=== PATIENT | female | born 1980 | race Caucasian/White ===

== ENCOUNTER 2017-03-19 16:42 | Emergency (ER) | payer OTHER ==
[2017-03-19] MEDS ORDERED: ONDANSETRON 4 MG/2 ML VIAL IVP ONE (17:37)
[2017-03-19] MEDS ORDERED: NS 1,000 ML IV ONE (17:37)
--- NOTE | 2017-03-19 17:40 | EDPHY ---
H & P Time Seen by Provider: 03/19/17 17:21 HPI/ROS: CHIEF COMPLAINT: Abdominal pain HISTORY OF PRESENT ILLNESS: Patient is a 37-year-old who presents with right lower quadrant abdominal pain starting at 2:45 a.m. today. She has had symptoms before but not for several months. She only has some ice tea today. Symptoms got worse and she took some Gas-X but it did nothing and she felt worse and she had a single episode of vomiting. When it was at its worse she felt like she could stand up and like she might pass out. Did not radiate. Was severe and now is mild. Not associated with vaginal discharge or bleeding or urinary symptoms or recent injury fall or trauma. REVIEW OF SYSTEMS: Eye: no change in vision ENT: no sore throat Cardiac: no chest pain or syncope Pulmonary: no cough or SOB Abdomen: HPI Musculoskeletal: no back pain Skin: no rash Neuro: no headache Constitutional: no fever : no urinary symptoms A comprehensive 10 point review of systems is otherwise negative aside from elements mentioned in the history of present illness. PAST MEDICAL HISTORY: Negative Social history: Daily alcohol, is studying for her H-art (WPP) exam General Appearance: Alert and conversant, cooperative. Eyes: No scleral icterus. ENT, Mouth: Normal mucous membranes. Respiratory: Normal respiratory effort, breath sounds equal, lungs are clear to auscultation. Cardiovascular: Regular rate and rhythm. Gastrointestinal: Right lower quadrant tenderness without rebound or guarding. Neurological: Alert and oriented x3. Normally conversant. Face symmetric, normal movement and sensation in all extremities. Skin: Warm and dry, no rashes. Musculoskeletal: No peripheral edema and no joint swelling. Psychiatric: Not agitated. Emergency Department course/MDM: Declined IV pain medication. Plan for labs and ultrasound. WBC 7.91, normal electrolytes and LFTs, negative lipase, not . Ultrasound: 6x5x4 cm midline mass, IUD in place, otherwise no evidence of appendicitis, can't see either ovary: , recommends CT. 1914: Results discussed, CT recommended and consented 2019: CT shows 10 cm dermoid tumor, results and findings discussed with the patient, plan to consult with OBGYN from [facility]. At this time she is comfortable and does not require pain medication. 2031: Bree walker. 2042: Jignesh for [facility] OBGYN; will see the patient in the office on Tuesday. Smoking Status: Never smoked Constitutional: Initial Vital Signs Temperature (C) 36.5 C 03/19/17 16:46 Heart Rate 64 03/19/17 16:46 Respiratory Rate 21 H 03/19/17 16:46 Blood Pressure 132/84 H 03/19/17 16:46 O2 Sat (%) 100 03/19/17 16:46 O2 Delivery Mode Room Air Allergies/Adverse Reactions: No Known Allergies Allergy (Verified 03/19/17 16:44) Home Medications: Medication Instructions Recorded NK [No Known Home Meds] 03/19/17 Medical Decision Making - Diagnostics Imaging Results: Imaging Impressions Abdomen Ultrasound 03/19/17 17:38 Impression: Negative limited right lower quadrant ultrasound, specifically, there are no secondary findings to support a clinical diagnosis of acute appendicitis. Ultrasound Pelvis Complete (Transabdominal and Endovaginal) History: Pelvic pain in a 37-year-old female. Comparison: No previous studies are available for comparison. Technique: Transabdominal and endovaginal ultrasound images were obtained. Endovaginal images obtained for better evaluation of the uterine myometrium and adnexa. Findings: The uterus is normal in size and measures 7.7 x 3.1 x 3.9 cm. Nabothian cysts are seen in the lower uterine segment. An IUD is in place. The endometrium measures 0.2 cm in thickness. No uterine fibroid formation is seen. The ovaries are not visualized either transabdominally or transvaginally. There is a heterogeneous mass seen in the pelvis in the midline, measuring greater than 6 cm in maximum dimension. A small amount of free fluid is seen in the dependent portion of the pelvis. Impression: Pelvic mass which is suboptimally characterized on this ultrasound study. It could reflect a dermoid or other tumor. Possibly this could reflect a large amount of fecal material. No peristalsis was seen within the mass. Results called and discussed with Magalys Piper M.D. on March 19, 2017 at 1911 hours. Pelvic/Renal Ultrasound 03/19/17 17:38 Impression: Negative limited right lower quadrant ultrasound, specifically, there are no secondary findings to support a clinical diagnosis of acute appendicitis. Ultrasound Pelvis Complete (Transabdominal and Endovaginal) History: Pelvic pain in a 37-year-old female. Comparison: No previous studies are available for comparison. Technique: Transabdominal and endovaginal ultrasound images were obtained. Endovaginal images obtained for better evaluation of the uterine myometrium and adnexa. Findings: The uterus is normal in size and measures 7.7 x 3.1 x 3.9 cm. Nabothian cysts are seen in the lower uterine segment. An IUD is in place. The endometrium measures 0.2 cm in thickness. No uterine fibroid formation is seen. The ovaries are not visualized either transabdominally or transvaginally. There is a heterogeneous mass seen in the pelvis in the midline, measuring greater than 6 cm in maximum dimension. A small amount of free fluid is seen in the dependent portion of the pelvis. Impression: Pelvic mass which is suboptimally characterized on this ultrasound study. It could reflect a dermoid or other tumor. Possibly this could reflect a large amount of fecal material. No peristalsis was seen within the mass. Results called and discussed with Magalys Piper M.D. on March 19, [address] 03/19/17 19:17 Impression: 1. Complex cystic mass containing large amounts of fat is presumably a dermoid. It displaces adjacent structures without infiltration. 2. See above report for additional findings. Results called and discussed with MAGALYS PIPER M.D. on 03/19/2017 at 20:20 Differential Diagnosis: Differential considered including but not limited to appendicitis, ovarian torsion, ovarian cyst, PID, UTI, pelvic mass. - Data Points Laboratory Results: Laboratory Results 03/19/17 17:30 03/19/17 17:30 03/19/17 03/19/17 03/19/17 20:30 17:30 17:30 WBC RBC Hgb Hct MCV MCH MCHC RDW Plt Count MPV Neut % (Auto) Lymph % (Auto) [place] % (Auto) Eos % (Auto) Baso % (Auto) Nucleat RBC Rel Count Absolute Neuts (auto) Absolute Lymphs (auto) Absolute Monos (auto) Absolute Eos (auto) Absolute Basos (auto) Absolute Nucleated RBC Immature Gran % Immature Gran # Sodium 137 mEq/L mEq/L (134-144) Potassium 3.9 mEq/L mEq/L (3.5-5.2) Chloride 104 mEq/L mEq/L (97-110) Carbon Dioxide 19 mEq/l L mEq/l (22-31) Anion Gap 14 mEq/L mEq/L (8-16) BUN 12 mg/dL mg/dL (7-23) Creatinine 0.8 mg/dL mg/dL (0.6-1.0) Estimated GFR > 60 Glucose 88 mg/dL mg/dL (70-100) Calcium 9.7 mg/dL mg/dL (8.5-10.4) Total Bilirubin 0.7 mg/dL mg/dL (0.1-1.4) Conjugated Bilirubin 0.3 mg/dL mg/dL (0.0-0.5) Unconjugated Bilirubin 0.4 mg/dL mg/dL (0.0-1.1) AST 42 IU/L IU/L (14-46) ALT 46 IU/L IU/L (9-52) Alkaline Phosphatase 83 IU/L IU/L (38-126) Total Protein 8.3 g/dL H g/dL (6.3-8.2) Albumin 5.0 g/dL g/dL (3.5-5.0) Lipase 175.0 IU/L IU/L (23-300) Beta HCG, Qual NEGATIVE Urine Color PALE YELLOW Urine Appearance CLEAR Urine pH 5.0 (5.0-7.5) Ur Specific [place] 1.027 (1.002-1.030) Urine Protein NEGATIVE (NEGATIVE) Urine Ketones 1+ H (NEGATIVE) Urine Blood NEGATIVE (NEGATIVE) Urine Nitrate NEGATIVE (NEGATIVE) Urine Bilirubin NEGATIVE (NEGATIVE) Urine Urobilinogen NEGATIVE EU EU (0.2-1.0) Ur Leukocyte Esterase NEGATIVE (NEGATIVE) Urine Glucose NEGATIVE (NEGATIVE) 03/19/17 17:30 WBC 7.91 10^3/uL 10^3/uL (3.80-9.50) RBC 4.31 10^6/uL 10^6/uL (4.18-5.33) Hgb 13.4 g/dL g/dL (12.6-16.3) Hct 38.8 % % (38.0-47.0) MCV 90.0 fL fL (81.5-99.8) MCH 31.1 pg pg (27.9-34.1) MCHC 34.5 g/dL g/dL (32.4-36.7) RDW 13.0 % % (11.5-15.2) Plt Count 191 10^3/uL 10^3/uL (150-400) MPV 10.8 fL fL (8.7-11.7) Neut % (Auto) 84.4 % H % (39.3-74.2) Lymph % (Auto) 11.1 % L % (15.0-45.0) [place] % (Auto) 3.9 % L % (4.5-13.0) Eos % (Auto) 0.1 % L % (0.6-7.6) Baso % (Auto) 0.1 % L % (0.3-1.7) Nucleat RBC Rel Count 0.0 % % (0.0-0.2) Absolute Neuts (auto) 6.67 10^3/uL H 10^3/uL (1.70-6.50) Absolute Lymphs (auto) 0.88 10^3/uL L 10^3/uL (1.00-3.00) Absolute Monos (auto) 0.31 10^3/uL 10^3/uL (0.30-0.80) Absolute Eos (auto) 0.01 10^3/uL L 10^3/uL (0.03-0.40) Absolute Basos (auto) 0.01 10^3/uL L 10^3/uL (0.02-0.10) Absolute Nucleated RBC 0.00 10^3/uL 10^3/uL (0-0.01) Immature Gran % 0.4 % % (0.0-1.1) Immature Gran # 0.03 10^3/uL 10^3/uL (0.00-0.10) Sodium Potassium Chloride Carbon Dioxide Anion Gap BUN Creatinine Estimated GFR Glucose Calcium Total Bilirubin Conjugated Bilirubin Unconjugated Bilirubin AST ALT Alkaline Phosphatase Total Protein Albumin Lipase Beta HCG, Qual Urine Color Urine Appearance Urine pH Ur Specific [place] Urine Protein Urine Ketones Urine Blood Urine Nitrate Urine Bilirubin Urine Urobilinogen Ur Leukocyte Esterase Urine Glucose Medications Given: Discontinued Medications Sodium Chloride (Ns) 1,000 mls @ 0 mls/hr IV ONCE ONE; Wide Open PRN Reason: Protocol Stop: 03/19/17 17:38 Last Admin: 03/19/17 17:51 Dose: 1,000 mls Ondansetron HCl (Zofran) 4 mg IVP EDNOW ONE Stop: 03/19/17 17:38 Last Admin: 03/19/17 17:51 Dose: 4 mg Departure - Departure Disposition: Home, Routine, Self-Care Clinical Impression: Dermoid tumor Condition: Good Instructions: Computed Tomography Scan (ED) Referrals: Cynthia Walker MD [Primary Care Provider] - As per Instructions Andreia Egan MD [Medical Doctor] - 03/21/17 (Follow-up with [facility] OBGYN on Tuesday.) Stand Alone Forms: Work Excuse
[2017-03-19 17:43] LABS: % IMMATURE GRANULYOCYTES 0.4 % (0.0-1.1); ABSOLUTE IMMATURE GRANULOCYTES 0.03 10^3/uL (0.00-0.10); ADD DIFF? NO; ADD MORPH? NO; ADD SCAN? NO; ATYPICAL LYMPHOCYTE FLAG 20 (0-99); FRAGMENT RBC FLAG 0 (0-99); HEMATOCRIT 38.8 % (38.0-47.0); HEMOGLOBIN 13.4 g/dL (12.6-16.3); LEFT SHIFT FLG 0 (0-99); LIPEMIA HEMOLYSIS FLAG 90 (0-99); MEAN CELL HEMOGLOBIN 31.1 pg (27.9-34.1); MEAN CELL HEMOGLOBIN CONCENTR. 34.5 g/dL (32.4-36.7); MEAN PLATELET VOLUME 10.8 fL (8.7-11.7); PLATELET CLUMPS FLAG 0 (0-99); PLATELET COUNT 191 10^3/uL (150-400); RED BLOOD CELL COUNT 4.31 10^6/uL (4.18-5.33)
[2017-03-19 17:57] LABS: ALANINE AMINOTRANSFERASE 46 IU/L (9-52); ALKALINE PHOSPHATASE 83 IU/L (38-126); ANION GAP 14 mEq/L (8-16); ASPARTATE AMINOTRANSFERASE 42 IU/L (14-46); BILIRUBIN,TOTAL 0.7 mg/dL (0.1-1.4); BILIRUBIN-CONJUGATED 0.3 mg/dL (0.0-0.5); BILIRUBIN-UNCONJUGATED 0.4 mg/dL (0.0-1.1); CALCIUM 9.7 mg/dL (8.5-10.4); CARBON DIOXIDE 19 mEq/l (22-31); CHLORIDE 104 mEq/L (97-110); CREATININE 0.8 mg/dL (0.6-1.0); GLOMERULAR FILTRATION RATE > 60; GLUCOSE 88 mg/dL (70-100); POTASSIUM 3.9 mEq/L (3.5-5.2); SODIUM 137 mEq/L (134-144); TOTAL PROTEIN 8.3 g/dL (6.3-8.2)
[2017-03-19] MEDS ORDERED: IOPAMIDOL (ISOVUE-300) 100 ML BTL ONE (19:22)
[2017-03-19 20:25] VITALS: RESP 18; O2SAT 97
[2017-03-19 20:44] LABS: COLOR PALE YELLOW; LEUKOCYTE ESTERASE,URINE NEGATIVE (NEGATIVE); NITRITE,URINE NEGATIVE (NEGATIVE)
[2017-03-19 21:09] VITALS: BP 107/75; PULSE 64; TEMP 98.4
== END 2017-03-19 21:09 | disposition home or self-care (01) ==
DX: D36.7 Benign neoplasm of other specified sites (principal)
CPT/HCPCS: 96374; J2405; Q9967

== ENCOUNTER 2017-04-08 06:08 | Inpatient (IN) | payer OTHER ==
--- NOTE | 2017-04-06 18:46 | GHP ---
[f rep st] PREOP HISTORY AND PHYSICAL DATE OF ADMISSION: 04/08/2017 CHIEF COMPLAINT: Lower abdominal pain and ovarian cyst. HISTORY OF PRESENT ILLNESS: The patient is a 37-year-old, 1, para 0, abortus 1 female with last menstrual period of March 10, 2017, using the Mirena IUD for control, who presents for preo perative exam for surgery to remove a large ovarian cyst, which has been undiagnosed and found to be 10 cm, with appearance suggestive of a dermoid cyst. Patient reports discomfort and generalized cr amping since March 19 when she went to the emergency room. She reports having intermittent pain fo r years now and always thought it was gas pain. In the last few months, the pain has been getting w orse. She has had occasional episodes of severe pain. She was found on imaging via abdominal CT an d pelvic ultrasound to have a complex 10 cm ovarian cyst that is located in the mid pelvis, measurin g 10 x 10 cm, which contains large amounts of fat consistent with a presumed fibroid. A pelvic ultr asound on March 19 as well showed that her uterus appeared otherwise normal with an IUD in place. The patient highly desired to proceed with surgical management and agrees to plan for surgery this w minto. She has had a preoperative CA-125 which was normal at 19. REVIEW OF SYSTEMS: Negative, other than as mentioned in the HPI. PAST MEDICAL HISTORY: Migraine headaches, history of syncope, allergic rhinitis. PAST SURGICAL HISTORY: None. FAMILY HISTORY: Noncontributory. SOCIAL HISTORY: Denies tobacco, alcohol, and drug use. Patient is . ALLERGIES: Augmentin. PHYSICAL EXAMINATION: VITAL SIGNS: Height 66 inches, weight 144 pounds, blood pressure 118/80, pul se 70. CONSTITUTIONAL: No acute distress. Well-nourished. Well-developed. RESPIRATORY: Clear t o auscultation bilaterally. CARDIOVASCULAR: Regular rate and rhythm. ABDOMEN: Soft and nontender . PELVIC: Normal exam with IUD string seen clearly and mass palpated on exam, which was tender to pal pation. EXTREMITIES: Normal with no cyanosis, edema, or clubbing. ASSESSMENT: Patient is a 37-year-old female with a 10 cm complex ovarian mass. Imaging suggests th is is consistent with a dermoid cyst. PLAN: Proceed to operating room on April 08, 2017, for mini laparotomy, ovarian cystectomy, and any other necessary procedures. All risks, benefits, indications, and alternatives were reviewed at [facility], to include risks of infection, bleeding, blood transfusion, damage to surrounding structures an d organs, risks of anesthesia, and all other necessary procedures. Benefit is further diagnosis and exclusion of cancer. Plan for preoperative antibiotics with clindamycin 900 mg on-call to the operating room, given her a llergy to Augmentin. Preoperative labs: CBC, type and screen, and urinalysis. All questions were answered and consent signed. /[id number]/MODL
[2017-04-08] MEDS ORDERED: CLINDAMYCIN 900 MG/DEXTROSE 50 ML IV ONE (06:28)
[2017-04-08] MEDS ORDERED: LIDOCAINE 1% 2 ML INJ ID PRN (06:29)
[2017-04-08] MEDS ORDERED: LR 1,000 ML IV ONE (06:29)
[2017-04-08] MEDS ORDERED: MIDAZOLAM 2 MG/2 ML VIAL IVP ONE (07:22)
[2017-04-08] MEDS ORDERED: SCOPOLAMINE HYDROBROMIDE 1.5 MG PATCH TD ONE (07:22)
--- NOTE | 2017-04-08 07:23 | PDHPUP ---
History & Physical Update H&P update statement: This history and physical update is based on an assessment of the patient which was completed after admission or registration (within 24 hours), but prior to the surgery/procedure. H&P update: no change in patient's condition since H&P completed
[2017-04-08] MEDS ORDERED: fentaNYL 100 MCG/2 ML INJ ONE ×4 (07:25→10:35)
[2017-04-08] MEDS ORDERED: PROPOFOL/EMULSION 500 MG/50 ML BOTTLE IV ONE (07:25)
[2017-04-08] MEDS ORDERED: PROPOFOL 200 MG/20 ML VIAL ONE (07:25)
[2017-04-08] MEDS ORDERED: LIDOCAINE 2% 5 ML SDV ONE (07:26)
[2017-04-08] MEDS ORDERED: MIDAZOLAM 2 MG/2 ML VIAL ONE (07:28)
--- NOTE | 2017-04-08 07:32 | PDANEPAE ---
ANE History of Present Illness Patient presents for surgery ANE Past Medical History - Cardiovascular History Hx Hypertension: No Hx Arrhythmias: No Hx Chest Pain: No Hx Coronary Artery / Peripheral Vascular Disease: No Hx CHF / Valvular Disease: No Hx Palpitations: No Cardiovascular History Comment: had holter monitor test for fainting spell that came back normal - Pulmonary History Hx COPD: No Hx Asthma/Reactive Airway Disease: No Hx Recent Upper Respiratory Infection: No Hx Oxygen in Use at Home: No Hx Sleep Apnea: No Sleep Apnea Screening Result - Last Documented: Negative - Neurologic History Hx Cerebrovascular Accident: No Hx Seizures: No Hx Dementia: No - Endocrine History Hx Diabetes: No - Renal History Hx Renal Disorders: No - Liver History Hx Hepatic Disorders: No - Neurological & Psychiatric Hx Hx Neurological and Psychiatric Disorders: Yes Neurological / Psychiatric History Comment: anxiety/ stress - Cancer History Hx Cancer: No - Congenital Disorder History Hx Congenital Disorders: No - GI History Hx Gastrointestinal Disorders: No - Other Health History Other Health History: wears glasses/ contacts- instructed pt to wear glasses dos - Chronic Pain History Chronic Pain: No - Surgical History Prior Surgeries: wisdom teeth removed. in teens ANE Review of Systems - Exercise capacity Exercise capacity: >=4 METS METS (RN): 4 METS ANE Patient History - Allergies Allergies/Adverse Reactions: No Known Allergies Allergy (Verified 04/06/17 16:00) - Home Medications Home Medications: Hydrocodone/Acetaminophen [[place] 5/325 (*)] 1 each PO Q6HRS PRN 03/31/17 [Last Taken Unknown] Vitamin B Complex [B Complex] 1 each PO DAILY 03/31/17 [Last Taken Unknown] - NPO status NPO Since - Liquids (Date): 04/08/17 NPO Since - Liquids (Time): 04:30 NPO Since - Solids (Date): 04/07/17 NPO Since - Solids (Time): 19:00 - Anes Hx Anes Hx: no prior problems - Smoking Hx Smoking Status: Never smoked - Family Anes Hx Family Hx Anesthesia Complications: none ANE Labs/Vital Signs - Vital Signs Blood Pressure: 103/73 Heart Rate: 62 Respiratory Rate: 16 O2 Sat (%): 100 Height: 167.64 cm Weight: 64.41 kg ANE Physical Exam - Airway Neck exam: FROM Mallampati Score: Class 1 Mouth exam: normal dental/mouth exam - Pulmonary Pulmonary: no respiratory distress - Cardiovascular Cardiovascular: regular rate and rhythym - ASA Status ASA Status: I ANE Anesthesia Plan Anesthesia Plan: general endotracheal anesthesia (RBA discussed)
[2017-04-08] MEDS ORDERED: ONDANSETRON 4 MG/2 ML VIAL ONE ×2 (08:01→10:34)
[2017-04-08] MEDS ORDERED: DEXAMETHASONE 4 MG/ML VIAL ONE (08:01)
[2017-04-08] MEDS ORDERED: NALOXONE HCL 0.4 MG/ML INJ IVP PRN (08:16)
[2017-04-08] MEDS ORDERED: KETOROLAC 30 MG/1 ML SDV ONE (08:18)
[2017-04-08] MEDS ORDERED: ROCURONIUM 50 MG/5 ML VIAL ONE (08:42)
[2017-04-08] MEDS ORDERED: SUGAMMADEX SODIUM 200 MG/2 ML VIAL IVP ONE (08:54)
[2017-04-08] MEDS ORDERED: ONDANSETRON 4 MG/2 ML VIAL IVP PRN (09:20)
[2017-04-08] MEDS ORDERED: ACETAMINOPHEN 325 MG TAB PO PRN (09:20)
[2017-04-08] MEDS: fentaNYL 100 MCG/2 ML INJ IVP PRN ×6 (09:25→10:36)
--- NOTE | 2017-04-08 09:27 | POSTANESTH ---
Post Anesthetic Evaluation Cardiovascular Status: Normal, Stable Respiratory Status: Normal, Stable Level of Consciousness/Mental Status: Can Participate in Eval Pain Control: Adequate, Prn Tx Ordered Nausea/Vomiting Control: Adequate, Prn Tx Ordered
[2017-04-08] MEDS ORDERED: LR 1,000 ML IV SCH (09:30)
[2017-04-08] MEDS: HYDROCODONE/APAP 5/325 TAB PO PRN ×2 (11:54→16:09)
--- NOTE | 2017-04-08 13:27 | POSTOPPROG ---
Post Op Note Date of Operation: 04/08/17 Surgeon: Andreia Egan Product Test Specialist: Ying Bryant MD Anesthesia: GET(General Endotracheal) Pre-op Diagnosis: Complex ovarian cyst Post-op Diagnosis: Bilateral complex ovarian cysts, suspect dermoids Indication: Large 10cm complex ovarian cyst Procedure: Laparotomy, ovarian cystectomy Findings: Bilateral ovarian cysts Inf/Abcess present in the surg proc area at time of surgery?: No Depth: Organ Space EBL: Minimal Total fluids administered: 700 cc Complications: none Drains: Other (shook) Specimen(s): Right and left ovarian cysts, peritoneal washings
[2017-04-08] MEDS: KETOROLAC 30 MG/1 ML SDV IVP PRN ×2 (14:40→20:50)
[2017-04-08] MEDS: OXYCODONE/APAP 5/325 TAB PO PRN (20:11)
[2017-04-09] MEDS: OXYCODONE/APAP 5/325 TAB PO PRN ×6 (00:19→22:10)
[2017-04-09] MEDS: KETOROLAC 30 MG/1 ML SDV IVP PRN (03:14)
[2017-04-09 06:28] LABS: % IMMATURE GRANULYOCYTES 0.3 % (0.0-1.1); ABSOLUTE IMMATURE GRANULOCYTES 0.02 10^3/uL (0.00-0.10); ADD DIFF? NO; ADD MORPH? NO; ADD SCAN? NO; ATYPICAL LYMPHOCYTE FLAG 10 (0-99); FRAGMENT RBC FLAG 0 (0-99); HEMATOCRIT 32.8 % (38.0-47.0); HEMOGLOBIN 11.3 g/dL (12.6-16.3); LEFT SHIFT FLG 0 (0-99); LIPEMIA HEMOLYSIS FLAG 90 (0-99); MEAN CELL HEMOGLOBIN 31.5 pg (27.9-34.1); MEAN CELL HEMOGLOBIN CONCENTR. 34.5 g/dL (32.4-36.7); MEAN CELL VOLUME 91.4 fL (81.5-99.8); MEAN PLATELET VOLUME 11.2 fL (8.7-11.7); PLATELET CLUMPS FLAG 0 (0-99); PLATELET COUNT 158 10^3/uL (150-400); RED BLOOD CELL COUNT 3.59 10^6/uL (4.18-5.33); RED CELL DISTRIBUTION WIDTH 13.2 % (11.5-15.2)
[2017-04-09] MEDS ORDERED: POLYETHYLENE GLYCOL 3350 17 GM PKT PO PRN (08:34)
[2017-04-09] MEDS ORDERED: BISACODYL 10 MG SUPP PR PRN (08:34)
[2017-04-09] MEDS ORDERED: LACTULOSE 20 GM/30 ML UDCUP PO PRN (08:34)
[2017-04-09] MEDS ORDERED: MAGNESIUM HYDROXIDE 30 ML UDCUP PO PRN (08:34)
--- NOTE | 2017-04-09 09:43 | SOAPPROG ---
SOAP Progress Note Assessment/Plan: Assessment: POD#1 s/p mini-lap, bilateral ovarian cystectomy for dermoid cysts Hct appropriate VSS Recovering well Plan: Routine postop care Transition to oral pain meds today Void trial Ambulation Expect home POD#2 04/09/17 09:42 Subjective: Poor sleep due to pain, however is mostly controlled with toradol and percocet ( 2 tab q4h). Is passing flatus, small amount but had gas pain. Has ambulated x 2 , hasn't voided yet after removal of shook. Tolerating yogurt and crackers. Objective: Vital Signs Temp Pulse Resp BP Pulse Ox 36.3 C 48 L 16 92/60 L 97 04/09/17 03:30 04/09/17 03:30 04/09/17 03:30 04/09/17 03:30 04/09/17 03:30 Laboratory Results 04/09/17 06:20 04/08/17 04/09/17 04/10/17 05:59 05:59 05:59 Intake Total 2900 Output Total 2225 Balance 675 Gen: NAD, alert, awake Resp: unlabored CV: RRR Abd: soft, moderately distended, appropriate tenderness Incision: bandage with minimal serosanguineous staining Ext: no edema ICD10 Worksheet Patient Problems: Problems Problem Status Onset S/P ovarian cystectomy Acute - ICD10 Problem Qualifiers (1) S/P ovarian cystectomy
[2017-04-09] MEDS: SENNOSIDES/DOCUSATE SODIUM TAB PO SCH ×2 (10:21→22:11)
[2017-04-09] MEDS: IBUPROFEN 600 MG TAB PO PRN ×2 (12:21→19:12)
[2017-04-10] MEDS: IBUPROFEN 600 MG TAB PO PRN ×2 (01:10→08:27)
[2017-04-10 01:14] VITALS: RESP 16
[2017-04-10] MEDS: OXYCODONE/APAP 5/325 TAB PO PRN ×3 (02:59→12:42)
[2017-04-10] MEDS: SENNOSIDES/DOCUSATE SODIUM TAB PO SCH (08:28)
[2017-04-10 08:40] VITALS: BP 99/62; PULSE 55; TEMP 98.5; O2SAT 97
--- NOTE | 2017-04-10 10:28 | GDS ---
[f rep st] DISCHARGE SUMMARY ADMISSION DIAGNOSIS: Ovarian cyst. POSTOPERATIVE DIAGNOSIS: Ovarian cyst, status post bilateral cystectomy. PROCEDURES: 1. Mini laparotomy. 2. Bilateral ovarian cystectomy for bilateral dermoid cysts. COMPLICATIONS: None. CONSULTS: None. HISTORY OF PRESENT ILLNESS: The patient is a healthy 37-year-old 0 who presented to the hospital with abdominal pain, and on imaging was found to have a complex ovarian cyst. She was seen as an outpatient and, given the complexity of the cyst and her symptoms, it was recommended to proceed with surgical intervention. HOSPITAL COURSE: She was brought to the hospital for a planned mini laparotomy and ovarian cystectomy. Initially on the imaging, it appeared only 1 ovary was involved, but at the time of surgery both ovaries were noted to have 2 dermoid cysts each, which were completely resected without complication. The patient did very well postoperatively and had a routine postoperative course. Her postoperative hematocrit was appropriate at 32.8. By postoperative day #2, she was meeting all milestones, including pain controlled with oral medications, tolerating a regular diet, ambulating and voiding normally, and passing flatus. She was discharged home on postoperative day 2 in stable condition. HOME MEDICATIONS: Continue current home B vitamins. Prescriptions given for Percocet 5/325 mg 1-2 tabs every 4 hours as needed, and ibuprofen 600 mg 1 tab every 6 hours as needed. DISCHARGE INSTRUCTIONS: Follow up with Dr. Egan in 2 weeks as scheduled. No heavy lifting for 6 weeks. No intercourse for 2 weeks. No driving for 2 weeks. Call for any concerns, including pain, fevers, chills, nausea, vomiting , signs of wound infection. /[id number]/MODL MTDD
== END 2017-04-10 13:44 | disposition home or self-care (01) | DRG 743 ==
LOC: F3E 06:08 → FOB 11:22
PROVIDERS: ADMIT Obstetrics & Gynecology; ATTEND Obstetrics & Gynecology
PROC: 3E1M38Z Irrigation of Peritoneal Cavity using Irrigating Substance, Percutaneous Approach (ICD-10-PCS; principal; 2017-04-08 07:30)
PROC: 0UB20ZZ Excision of Bilateral Ovaries, Open Approach (ICD-10-PCS; principal; 2017-04-08 07:30)
DX: D27.0 Benign neoplasm of right ovary (principal); D27.1 Benign neoplasm of left ovary
CPT/HCPCS: J1100; J1885; J2250; J2405; J2704; J3010

== ENCOUNTER → 2017-08-09 | Outpatient (CLI) | payer OTHER | LOC: FIMAGING 15:51 | PROVIDERS: ATTEND Obstetrics & Gynecology | DX: N83.202 Unspecified ovarian cyst, left side (principal); Z86.018 Personal history of other benign neoplasm; Z97.5 Presence of (intrauterine) contraceptive device ==

== ENCOUNTER → 2017-09-07 | Outpatient (CLI) | payer OTHER | LOC: FIMAGING 13:39 | PROVIDERS: ATTEND Obstetrics & Gynecology | DX: N83.202 Unspecified ovarian cyst, left side (principal); Z97.5 Presence of (intrauterine) contraceptive device ==

== ENCOUNTER 2018-06-07 12:02 | Emergency (ER) | payer OTHER ==
[2018-06-07 12:49] LABS: PLATELET COUNT 198 10^3/uL (150-400)
--- NOTE | 2018-06-07 12:56 | EDPHY ---
H & P Stated Complaint: L anterior CP episodes x 2 days-worse with deep breathing Time Seen by Provider: 06/07/18 12:55 HPI/ROS: CHIEF COMPLAINT: Intermittent pleuritic pain HISTORY OF PRESENT ILLNESS: The patient presents to the ED with a 2 day history of intermittent sharp left lateral to sternum pleuritic chest pain. She denies any asymmetric calf pain or swelling. She denies prior history of PE or DVT. The patient does have an IUD. She denies any history of exertional chest pain, cough, trauma, fever or unexplained weight loss. The patient does have a history of chronic pelvic pain which has been relatively quiescent over the past several months. She has no complaints of acute abdominal pain today. REVIEW OF SYSTEMS: A comprehensive 10 point review of systems is otherwise negative aside from elements mentioned in the history of present illness. Source: Patient Exam Limitations: No limitations - Personal History LMP (Females 10-55): IUD In Place - Medical/Surgical History Hx Asthma: No Hx Chronic Respiratory Disease: No Hx Diabetes: No Hx Cardiac Disease: No Hx Renal Disease: No Hx Cirrhosis: No Hx Alcoholism: No Hx HIV/AIDS: No Hx Splenectomy or Spleen Trauma: No Other PMH: DENIES - Social History Smoking Status: Never smoked - Physical Exam Exam: General Appearance: Alert, no distress Eyes: Pupils equal and round no pallor or injection ENT, Mouth: Mucous membranes moist Respiratory: There are no retractions, lungs are clear to auscultation Cardiovascular: Regular rate and rhythm Gastrointestinal: Abdomen is soft and nontender, no masses, bowel sounds normal Neurological: 5/5 strength all 4 extremities Skin: Warm and dry, no rashes Musculoskeletal: Neck is supple nontender Extremities: symmetrical, full range of motion Constitutional: Initial Vital Signs Temperature (C) 36.1 C 06/07/18 12:05 Heart Rate 81 06/07/18 12:05 Respiratory Rate 18 06/07/18 12:05 Blood Pressure 127/87 H 06/07/18 12:05 O2 Sat (%) 100 06/07/18 12:05 O2 Delivery Mode Room Air Allergies/Adverse Reactions: No Known Allergies Allergy (Verified 04/06/17 16:00) Home Medications: Medication Instructions Recorded NK [No Known Home Meds] 06/07/18 Medical Decision Making - Diagnostics EKG Interpretation: EKG: Complete interpretation has been separately recorded in the [facility]: [facility] archive. Summary impression: Sinus rhythm, rate 61 Imaging Results: Imaging Impressions Chest X-Ray 06/07/18 12:40 Impression: No acute findings in the chest. ED Course/Re-evaluation: The patient presents to the ED with 2 days of intermittent sharp left-sided pleuritic chest pain. The patient is noted to be hemodynamically stable with no hypoxemia. She has no clinical evidence of a DV T. The patient's EKG demonstrates no evidence of an arrhythmia. And the patient's D-dimer is negative which I feel adequately excludes pulmonary embolism in this low risk by Wells criteria patient. Additionally the patient's troponin demonstrates no abnormalities. Her chest x- ray demonstrates no evidence of a pneumothorax or abnormal mediastinum. This point time the etiology of her symptoms seem to be consistent with mild pleurisy or possibly esophageal spasm. The patient has been reassured that we see no evidence of pericarditis, myocarditis, myocardial infarction, pneumothorax or pulmonary embolism. I do feel the patient can use Tylenol as needed for management of her symptoms. She has been instructed to return to the ED for markedly worsening symptoms or other concerns. I re-evaluated the patient at 1:30 p.m. and she is in no acute distress. I reviewed the results of her laboratory testing and return precautions. Differential Diagnosis: Differential diagnosis considered includes esophageal spasm, pleurisy, pericarditis, pulmonary embolism, pneumothorax, myocarditis, myocardial infarction, pericarditis - Data Points Laboratory Results: Laboratory Results 06/07/18 12:40 06/07/18 12:40 06/07/18 06/07/18 06/07/18 12:43 12:40 12:40 WBC 4.19 10^3/uL 10^3/uL (3.80-9.50) RBC 4.55 10^6/uL 10^6/uL (4.18-5.33) Hgb 14.1 g/dL g/dL (12.6-16.3) Hct 41.2 % % (38.0-47.0) MCV 90.5 fL fL (81.5-99.8) MCH 31.0 pg pg (27.9-34.1) MCHC 34.2 g/dL g/dL (32.4-36.7) RDW 12.4 % % (11.5-15.2) Plt Count 198 10^3/uL 10^3/uL (150-400) MPV 10.3 fL fL (8.7-11.7) Neut % (Auto) 61.5 % % (39.3-74.2) Lymph % (Auto) 26.3 % % (15.0-45.0) [place] % (Auto) 11.0 % % (4.5-13.0) Eos % (Auto) 0.5 % L % (0.6-7.6) Baso % (Auto) 0.5 % % (0.3-1.7) Nucleat RBC Rel Count 0.0 % % (0.0-0.2) Absolute Neuts (auto) 2.58 10^3/uL 10^3/uL (1.70-6.50) Absolute Lymphs (auto) 1.10 10^3/uL 10^3/uL (1.00-3.00) Absolute Monos (auto) 0.46 10^3/uL 10^3/uL (0.30-0.80) Absolute Eos (auto) 0.02 10^3/uL L 10^3/uL (0.03-0.40) Absolute Basos (auto) 0.02 10^3/uL 10^3/uL (0.02-0.10) Absolute Nucleated RBC 0.00 10^3/uL 10^3/uL (0-0.01) Immature Gran % 0.2 % % (0.0-1.1) Immature Gran # 0.01 10^3/uL 10^3/uL (0.00-0.10) D-Dimer Sodium 140 mEq/L mEq/L (135-145) Potassium 4.2 mEq/L mEq/L (3.3-5.0) Chloride 107 mEq/L mEq/L (97-110) Carbon Dioxide 24 mEq/l mEq/l (22-31) Anion Gap 9 mEq/L mEq/L (8-16) BUN 15 mg/dL mg/dL (7-23) Creatinine 0.7 mg/dL mg/dL (0.6-1.0) Estimated GFR > 60 Glucose 101 mg/dL H mg/dL (70-100) Calcium 9.3 mg/dL mg/dL (8.5-10.4) POC Troponin I 0.00 ng/mL ng/mL (0.00-0.08) 06/07/18 12:10 WBC RBC Hgb Hct MCV MCH MCHC RDW Plt Count MPV Neut % (Auto) Lymph % (Auto) [place] % (Auto) Eos % (Auto) Baso % (Auto) Nucleat RBC Rel Count Absolute Neuts (auto) Absolute Lymphs (auto) Absolute Monos (auto) Absolute Eos (auto) Absolute Basos (auto) Absolute Nucleated RBC Immature Gran % Immature Gran # D-Dimer 0.40 ug/mLFEU ug/mLFEU (0.00-0.50) Sodium Potassium Chloride Carbon Dioxide Anion Gap BUN Creatinine Estimated GFR Glucose Calcium POC Troponin I Point of Care Test Results: Chemistry 06/07/18 12:43 POC Troponin I 0.00 ng/mL ng/mL (0.00-0.08) Departure - Departure Disposition: Home, Routine, Self-Care Clinical Impression: Chest pain Condition: Good Instructions: Chest Pain (ED) Additional Instructions: 1. The workup in the emergency department today demonstrates no evidence of a cardiac or pulmonary abnormality. 2. I do feel watchful waiting is a reasonable plan. I recommend Tylenol as needed for pain. You can also try taking an [id number] antacid such as Zantac. 3. Please follow up with your primary care provider for any unimproved symptoms. 4. Please return to the ED for markedly worsening symptoms or other concerns. Referrals: Cynthia Walker MD [Primary Care Provider] - As per Instructions
[2018-06-07 13:39] VITALS: BP 105/78
--- NOTE | 2018-06-07 15:28 | CPEKG ---
Test Reason : OPEN Blood Pressure : / mmHG Vent. Rate : 061 BPM Atrial Rate : 060 BPM P-R Int : 133 ms QRS Dur : 084 ms QT Int : 444 ms P-R-T Axes : 046 043 016 degrees QTc Int : 448 ms Sinus rhythm Nonspecific T abnormalities, anterior leads Confirmed by Rudy Varela ([id number]) on 06/07/2018 3:28:16 PM Referred By: Confirmed By:Rudy Varela
== END 2018-06-07 13:45 | disposition home or self-care (01) ==
DX: R07.89 Other chest pain (principal)
CPT/HCPCS: 84484-PO

== ENCOUNTER → 2018-12-05 | Outpatient (CLI) | payer OTHER | LOC: BMCIMAGING 10:56 | PROVIDERS: ATTEND Family Medicine | DX: M79.672 Pain in left foot (principal); M93.872 Other specified osteochondropathies, left ankle and foot ==

== ENCOUNTER → 2018-12-21 | Outpatient (CLI) | payer OTHER | LOC: FIMAGING 11:03 | PROVIDERS: ATTEND Family Medicine | DX: R10.2 Pelvic and perineal pain (principal); Z97.5 Presence of (intrauterine) contraceptive device; N83.02 Follicular cyst of left ovary ==